=== PATIENT | male | born 1970 | race Caucasian/White ===

== ENCOUNTER 2019-07-05 16:50 | Emergency (ER) | payer SELFPAY ==
[~2019-07-05] VITALS: Ht 165.1 cm; Wt 68.0 kg
--- NOTE | 2019-07-05 17:05 | NUR ---
[facility] 79 [facility]. [id number]". DENIED CP, SOB, N/V/D. SEIZURE PRECAUTION OBSERVED. CONNECTED TO MONITOR. WILL CONT TO MONITOR.
--- NOTE | 2019-07-05 17:30 | NUR ---
NIURKA LOPEZ AT BEDSIDE FOR EVAL.
--- NOTE | 2019-07-05 17:38 | NUR ---
Patient does not wish to proceed with medical care recommended by Diallo LOPEZ. Patient given information related to possible complications, up to and including , which could occur as a result of leaving the hospital at this time. Patient verbalizes understanding of risks involved due to leaving against medical advice. Patient has signed AMA form. Patient discharged to home in stable condition. Written and verbal after care instructions given. Patient verbalizes understanding of instruction. IV removed. Catheter intact and site benign. Pressure and 4x4 applied to site. No bleeding noted.
[2019-07-05 17:48] VITALS: BP 140/100
== END 2019-07-05 17:40 | disposition left against medical advice (07) ==
LOC: ER 16:56
DX: R56.9 Unspecified convulsions (principal); R42 Dizziness and giddiness; R41.0 Disorientation, unspecified; Z72.0 Tobacco use